=== PATIENT | male | born 1970 | race African-American/Black ===

== ENCOUNTER 2022-01-09 10:34 | Emergency (ER) | payer OTHER ==
[~2022-01-09] VITALS: Ht 180.3 cm; Wt 108.0 kg
[~2022-01-09 10:34] MED LIST: ASA-EC81 MG PO; ATACAND 4 MG; Coreg PO; ENALAPRIL MALEAT5 MG PO; LIPITOR20 MG PO; LOSARTAN POTAS100 MG PO; NIFE60TA3 PO; NORVASC10 MG PO; NORVASC5 MG PO
[2022-01-09] MEDS ORDERED: ATORVASTATIN CA40 MG (11:18)
[2022-01-09] MEDS ORDERED: ZETIA10 MG (11:19)
[2022-01-09] MEDS ORDERED: SPIRONOLACTONE25 MG (11:19)
[2022-01-09] MEDS ORDERED: CARDURA XL4 MG (11:19)
[2022-01-09] MEDS ORDERED: TRULICITY3 MG/0.5 M (11:20)
[2022-01-09] MEDS ORDERED: HUMULIN R100 UNIT/1 (11:21)
== END 2022-01-09 17:47 | disposition home or self-care (01) ==
LOC: ER 10:34
DX: M77.8 Other enthesopathies, not elsewhere classified (principal)